=== PATIENT | female | born 1995 ===

== ENCOUNTER 2017-01-04 12:35 | Observation (INO) | payer MEDICAID ==
[2017-01-04 12:44] VITALS: BMI 42.5
[2017-01-04 13:00] VITALS: RESP 18; TEMP 98
--- NOTE | 2017-01-04 13:17 | ED PDOC ---
Arrival/HPI - General Chief Complaint: Abdominal Pain Time Seen by Provider: 01/04/17 12:49 Historian: Patient - History of Present Illness Narrative History of Present Illness (Text): 01/04/17 13:30 A 21 year old female presents to the emergency department complaining of diffuse abdominal pain since yesterday. Pain is intermittent and associated with non bloody watery diarrhea. Patient denies any fever, chills, nausea, vomiting, symptoms, recent antibiotic use or any other complaints at this time. Time/Duration: 24 hours Symptom Onset: Sudden Symptom Course: Intermittent Quality: Other Activities at Onset: Rest Context: Home Past Medical History - Provider Review Nursing Documentation Reviewed: Yes - Past History Past History: No Previous - Hematological/Oncological Hx Blood Transfusions: No - Musculoskeletal/Rheumatological Hx Falls: No - Psychiatric Hx Emotional Abuse: No Hx Physical Abuse: No Hx Substance Use: Yes - Surgical History Hx Cholecystectomy: Yes (January 2016) Hx Tonsillectomy: Yes - Anesthesia Hx Anesthesia: No - Suicidal Assessment Feels Threatened In Home Enviroment: No Family/Social History - Physician Review Nursing Documentation Reviewed: Yes Family/Social History: Unknown Family HX Smoking Status: Former Smoker Hx Alcohol Use: Yes Frequency of alcohol use: Socially Hx Substance Use: Yes Hx Substance Use Treatment: No Allergies/Home Meds Allergies/Adverse Reactions: Allergies pineapple Allergy (Verified 01/04/17 12:59) ANAPHYLAXIS Home Medications: Home Meds Medication Instructions Recorded Confirmed No Known Home Med 01/04/17 01/04/17 Physical Exam - Physical Exam Narrative Physical Exam (Text): - Review of Systems Constitutional: Normal. absent: Fatigue, Weight Change, Fevers Eyes: Normal ENT: Normal Respiratory: Normal absent: SOB, Cough, Sputum Cardiovascular: Normal absent: Chest pain, Palpitations, Syncope Gastrointestinal: Abdominal pain. Diarrhea absent: Nausea, Vomiting Genitourinary: Normal. absent: Dysuria, Frequency, Hematuria Musculoskeletal: Normal. absent: Arthralgias, Back Pain, Neck Pain Skin: Normal Neurological: Normal absent: Focal Weakness Endocrine: Normal Hemo/Lymphatic: Normal Psychiatric: Normal - Physical exam Patient appears age appropriate, speaking full sentences without difficulty - Systems Exam Head: Present: Atraumatic, Normocephalic Pupils: Present: PERRL Extraocular Muscles: Present: EOMI Conjunctiva: Present: Normal Mouth: Present: Moist Mucous Membranes Neck: Present: Normal Range of Motion. No: MIDLINE TENDERNESS, Paraspinal Tenderness Respiratory/Chest: Present: Clear to Auscultation, Good Air Exchange. No: Respiratory Distress, Accessory Muscle Use, Tachypneic Cardiovascular: Present: Regular Rhythm, Tachycardia, Normal S1, S2, Peripheral Pulses Present. No: Murmurs Abdomen: Present: Normal Bowel Sounds, No: Tenderness, Peritoneal Signs, Rebound, Guarding, Distention Back: Present: Normal Inspection. No: Midline Tenderness, Paraspinal Tenderness Upper Extremity: Present: Normal Inspection. No: Cyanosis, Edema Lower Extremity: Present: Normal Inspection. No: Edema Neurological: Present: GCS=15, Speech Normal, cranial nerves II through XII fully intact with no cerebellar abnormality, neuro-sensory fully intact. No focal neurological deficits. Skin: Present: Warm, Dry, Normal Color. No: Rashes Lymphatic: Present: OX3, NI, NC Psychiatric: Present: Alert, Oriented x 3, Normal Insight, Normal Concentration Vital Signs Reviewed: Yes Vital Signs Temp Pulse Resp BP Pulse Ox 01/04/17 16:32 98 H 18 101/58 L 96 01/04/17 15:35 101 H 18 97/53 L 96 01/04/17 14:17 99 H 18 115/75 98 01/04/17 12:44 98 F 110 H 18 117/78 98 Temperature: Afebrile Blood Pressure: Normal Pulse: Tachycardic Respiratory Rate: Normal Appearance: Positive for: Well-Appearing, Non-Toxic, Comfortable Pain Distress: None Mental Status: Positive for: Alert and Oriented X 3 Medical Decision Making ED Course and Treatment: 01/04/17 13:12 Impression: A 21 year old female with abdominal pain and diarrhea. No acute findings on physical examination. Differential Diagnosis include but are not limited to: dehydration vs. electrolyte imbalance Plan: -- Labs -- Toradol and IV Fluids -- Reassess and disposition Prior Visits: Notes and results from previous visits were reviewed. The patient is in the hospital in 01/15 and had a laparoscopic cholecystectomy Progress Notes: 01/04/17 18:00 Patient's CAT scan shows mildly dilated small bowel loops demonstrating mild wall thickening suspicious for enteritis. Mildly enlarged mesenteric lymph nodes suggesting mesenteric adenitis. Interpreted by . On reevaluation, patient reports that she feels much better and would like to be discharged home. Patient's repeat abdominal exam is soft, nontender, non distended with positive bowel sounds in all 4 quadrants and no peritoneal signs. Patient is tolerating PO without any difficulty. Pt states she understands to return to the ER right away for new or worsening symptoms or for inability to f/u with PMD or specialist as instructed. Patient states that she fully agrees with and understands discharge instructions. States that she agrees with the plan and disposition. Verbalized and repeated discharge instructions and plan. I have given the patient opportunity to ask any additional questions. - Lab Interpretations I have reviewed the lab results: Yes - Medication Orders Current Medication Orders: Discontinued Medications Sodium Chloride (Sodium Chloride 0.9%) 1,000 mls @ 1,000 mls/hr IV .Q1H STA Stop: 01/04/17 14:31 Last Admin: 01/04/17 13:45 Dose: 1,000 mls/hr Sodium Chloride (Sodium Chloride 0.9%) 1,000 mls @ 1,000 mls/hr IV .Q1H STA Stop: 01/04/17 16:07 Last Admin: 01/04/17 16:01 Dose: 1,000 mls/hr Iohexol (Omnipaque 350 100 Ml) Confirm Administered Dose 350 mg .ROUTE .STK-MED ONE Stop: 01/04/17 15:34 Ketorolac Tromethamine (Toradol) 15 mg IVP STAT STA Stop: 01/04/17 13:33 Last Admin: 01/04/17 14:20 Dose: 15 mg Morphine Sulfate (Morphine) 4 mg IVP STAT STA Stop: 01/04/17 15:09 Last Admin: 01/04/17 15:41 Dose: 4 mg Pantoprazole Sodium (Protonix Inj) 40 mg IVP STAT STA Stop: 01/04/17 16:58 Last Admin: 01/04/17 17:41 Dose: 40 mg ED OBSERVATION Discharge: Yes Date of observation admission: 01/04/17 Time of observation admission: 13:00 - Observation admission statement Patient is being placed in observation because:: abdominal pain - Goals of Observation Goals of observation are:: labs, CT - Scribe Statement The provider has reviewed the documentation as recorded by the Jaynaibdolly Nelson Provider Scribe Attestation: All medical record entries made by the Jaynaibdolly were at my direction and personally dictated by me. I have reviewed the chart and agree that the record accurately reflects my personal performance of the history, physical exam, medical decision making, and the department course for this patient. I have also personally directed, reviewed, and agree with the discharge instructions and disposition. Disposition/Present on Arrival - Present on Arrival Any Indicators Present on Arrival: No History of DVT/PE: No History of Uncontrolled Diabetes: No Urinary Catheter: No History of Decub. Ulcer: No History Surgical Site Infection Following: None - Disposition Have Diagnosis and Disposition been Completed?: Yes Diagnosis: Diarrhea Disposition: HOME/ ROUTINE Disposition Time: 13:00 Patient Plan: Observation Patient Problems: Current Active Problems Problem Status Onset Diarrhea Acute Condition: STABLE
[2017-01-04] MEDS ORDERED: Sodium Chloride 0.9% 1,000 ML IV STA ×2 (13:32→15:08)
[2017-01-04 13:58] LABS: ADD MANUAL DIFF? NO
[2017-01-04 14:04] LABS: BASO # 0.02 K/mm3 (0.0-2.0); BASO % 0.2 % (0.0-3.0); EOS % 0.2 % (1.5-5.0); GRAN # 6.96 (1.4-6.5); GRAN % 72.9 % (50.0-68.0); HEMATOCRIT 43.8 % (36.0-48.0); LYMPH # 1.8 (1.2-3.4); MEAN CELL VOLUME 79.6 fL (80.0-105.0); MEAN CORPUSCULAR HGB CONC 35.2 g/dl (31.0-37.0); MEAN PLATELET VOLUME 9.3 fl (7.0-11.0); MONO # 0.7 (0.1-0.6); MONO % 7.7 % (1.0-6.0); PLATELET COUNT 202 10^3/uL (120.0-450.0); WHITE BLOOD COUNT 9.5 10^3/ul (4.5-11.0)
[2017-01-04 14:12] LABS: ALB/GLOB RATIO 1.1 (1.1-1.8); ALKALINE PHOSPHATASE 95 U/L (38-133); ALT/SGPT 77 U/L (7-56); AST/SGOT 60 U/L (15-39); BILIRUBIN,TOTAL 0.5 mg/dL (0.2-1.3); BLOOD UREA NITROGEN 11 mg/dL (7-21); CALCIUM 9.3 mg/dL (8.4-10.5); CARBON DIOXIDE 25 mmol/L (21-33); CHLORIDE 102 mmol/L (98-107); GFR AFRICAN-AMERICAN > 60; GLUCOSE,RANDOM 103 mg/dL (70-110); LIPASE 83 U/L (23-300); SODIUM 138 mmol/L (132-148); TOTAL PROTEIN 8.4 g/dL (5.8-8.3)
[2017-01-04] MEDS ORDERED: Morphine 4 mg/ml ISec IVP STA (15:08)
[2017-01-04] MEDS ORDERED: Iohexol 350 MG/100 ML VIAL ONE (15:33)
[2017-01-04 15:35] VITALS: O2SAT 96
--- NOTE | 2017-01-04 17:41 | CT ---
PROCEDURE: CT Abdomen and Pelvis with contrast HISTORY: abd pain, diarrhea COMPARISON: None. TECHNIQUE: Contrast dose: 96 mL of Omnipaque 350. Axial and reformatted coronal and sagittal CT images of the abdomen and pelvis were obtained after IV contrast administration. Radiation dose: Total exam DLP = 1135.04 mGy-cm. This CT exam was performed using one or more of the following dose reduction techniques: Automated exposure control, adjustment of the mA and/or kV according to patient size, and/or use of iterative reconstruction technique. FINDINGS: LOWER THORAX: Unremarkable. LIVER: Unremarkable. No gross lesion or ductal dilatation. GALLBLADDER AND BILE DUCTS: Status post cholecystectomy PANCREAS: Unremarkable. No gross lesion or ductal dilatation. SPLEEN: Unremarkable. ADRENALS: Unremarkable. No mass. KIDNEYS AND URETERS: Unremarkable. No hydronephrosis. No solid mass. VASCULATURE: Unremarkable. No aortic aneurysm. BOWEL: Mildly dilated small bowel loops demonstrate mild wall thickening suspicious for enteritis. No evidence of bowel obstruction. Slightly dilated right colon contains fluid density stool suspicious for diarrhea and mild colitis. APPENDIX: No evidence of appendicitis. PERITONEUM: Unremarkable. No free fluid. No free air. LYMPH NODES: Mildly enlarged mesenteric lymph nodes seen at the mid and upper abdomen suspicious for mesenteric adenitis. BLADDER: Unremarkable. REPRODUCTIVE: Unremarkable. BONES: No acute fracture. OTHER FINDINGS: Trace amount of free fluid in the pelvis likely physiological. IMPRESSION: Mildly dilated small bowel loops demonstrate mild wall thickening suspicious for enteritis. Mildly enlarged mesenteric lymph nodes suggestive of mesenteric adenitis.
[2017-01-04 18:17] VITALS: BP 103/59; PULSE 89
== END 2017-01-04 18:03 | disposition home or self-care (01) ==
LOC: ED 12:35 → EROBSV 13:00
PROVIDERS: ADMIT Emergency Medicine; ATTEND Emergency Medicine
DX: R19.7 Diarrhea, unspecified (principal)
CPT/HCPCS: 74177; 80053; 83690; 85025; 96361; 96374; 96375; 99284; C9113; G0378; J1885; J2270; J7040; Q9967

== ENCOUNTER 2017-01-27 17:15 | Emergency (ER) | payer MEDICAID ==
[2017-01-27 17:35] VITALS: BMI 43.0
[2017-01-27 17:40] VITALS: RESP 18; TEMP 97.8
--- NOTE | 2017-01-27 18:14 | ED PDOC ---
Arrival/HPI - General Chief Complaint: Abnormal Skin Integrity Time Seen by Provider: 01/27/17 18:07 - History of Present Illness Narrative History of Present Illness (Text): 01/27/17 18:23 21yr old female presents today with sunburn to the bilateral shoulders 4 days. Patient states on Wednesday she was at a parade and developed a sunburn to the shoulders. Patient states over the past 2 days she developed some blisters on the tops of the shoulders bilaterally. Complaining of severe pain. No medications have been taken for pain at home. No fevers or chills. No other complaints. Past Medical History - Provider Review Nursing Documentation Reviewed: Yes - Travel History Have you recently traveled outside [place] w/in the past 3 mons?: No - Past History Past History: No Previous - Infectious Disease Hx of Infectious Diseases: None - Tetanus Immunization Tetanus Immunization: Unknown - Hematological/Oncological Hx Blood Transfusions: No - Musculoskeletal/Rheumatological Hx Falls: No - Psychiatric Hx Depression: Yes Hx Emotional Abuse: No Hx Physical Abuse: No Hx Substance Use: No - Surgical History Hx Cholecystectomy: Yes Hx Tonsillectomy: Yes - Anesthesia Hx Anesthesia: Yes Hx Anesthesia Reactions: No Hx Malignant Hyperthermia: No - Suicidal Assessment Feels Threatened In Home Enviroment: No Family/Social History - Physician Review Nursing Documentation Reviewed: Yes Family/Social History: Unknown Family HX Smoking Status: Former Smoker Hx Alcohol Use: No Hx Substance Use: No Hx Substance Use Treatment: No Allergies/Home Meds Allergies/Adverse Reactions: Allergies pineapple Allergy (Verified 01/04/17 12:59) ANAPHYLAXIS Home Medications: Home Meds Medication Instructions Recorded Confirmed Escitalopram Oxalate [Lexapro] 1 tab PO DAILY 01/27/17 01/27/17 Hydroxyzine HCl [Hydroxyzine HCl] 1 cap PO DAILY PRN 01/27/17 01/27/17 Review of Systems - Review of Systems Constitutional: absent: Fatigue, Fevers Respiratory: absent: SOB, Cough Cardiovascular: absent: Chest Pain, Palpitations Gastrointestinal: absent: Abdominal Pain, Nausea, Vomiting Genitourinary Female: absent: Dysuria, Frequency, Hematuria Musculoskeletal: absent: Arthralgias, Back Pain, Neck Pain Skin: Other (burn, shoulders) Psychiatric: absent: Anxiety, Depression Physical Exam Vital Signs Reviewed: Yes Vital Signs Temp Pulse Resp BP Pulse Ox 01/27/17 17:39 97.8 F 96 H 18 122/80 96 Temperature: Afebrile Blood Pressure: Normal Pulse: Regular Respiratory Rate: Normal Appearance: Positive for: Well-Appearing, Non-Toxic, Comfortable Pain Distress: None Mental Status: Positive for: Alert and Oriented X 3 - Systems Exam Head: Present: Atraumatic Mouth: Present: Moist Mucous Membranes Respiratory/Chest: Present: Clear to Auscultation, Good Air Exchange. No: Respiratory Distress, Accessory Muscle Use Cardiovascular: Present: Regular Rate and Rhythm, Normal S1, S2. No: Murmurs Abdomen: No: Tenderness Upper Extremity: Present: Normal ROM, NORMAL PULSES, Erythema (+ bilateral erythema to shoulders; + sporatic small round blisters noted on shoulder bilaterally, left greater than right. ), Neurovascularly Intact, Capillary Refill < 2s. No: Swelling Neurological: Present: GCS=15 Skin: Present: Warm, Dry Psychiatric: Present: Alert, Oriented x 3 Medical Decision Making ED Course and Treatment: 01/27/17 18:54 21-year-old female with sunburn to the bilateral shoulders left greater than right Silvadene applied Motrin given for pain Patient was advised to avoid the sun apply Silvadene twice daily follow-up with her primary care physician and return if symptoms worsen or persist or if new concerning symptoms develop Patient verbalizes understanding of discharge instructions and need for immediate followup. all aspects of this case were discussed the attending of record. Impression: Sunburn, second degree burn shoulders Motrin every 6 hours as needed for pain Apply Silvadene twice daily to the affected areas Avoid the sun Follow-up with her primary care physician within the next 2 days Return if symptoms worsen persist or if new concerning symptoms develop Disposition/Present on Arrival - Present on Arrival Any Indicators Present on Arrival: No History of DVT/PE: No History of Uncontrolled Diabetes: No Urinary Catheter: No History of Decub. Ulcer: No History Surgical Site Infection Following: None - Disposition Have Diagnosis and Disposition been Completed?: Yes Diagnosis: Burn from the sun Disposition: HOME/ ROUTINE Disposition Time: 18:07 Patient Plan: Discharge Patient Problems: Current Active Problems Problem Status Onset Burn from the sun Acute Condition: GOOD Discharge Instructions (ExitCare): Sunburn (ED), Second Degree Burn (ED) Additional Instructions: Motrin every 6 hours as needed for pain Apply Silvadene twice daily to the affected areas Avoid the sun Follow-up with her primary care physician within the next 2 days Return if symptoms worsen persist or if new concerning symptoms develop Prescriptions: Ibuprofen [Motrin] 600 mg PO Q6H PRN #20 tab PRN Reason: pain/fever reduction Silver Sulfadiazine 1% [Silver Sulfadiazine] 1 appl TP BID #1 jar Referrals: Tyrone Muro MD [Staff Provider] - Follow up with primary [facility] [place] [Outside] - Follow up with primary Forms: SCHOOL NOTE, WORK NOTE
[2017-01-27] MEDS ORDERED: Silver Sulfadiazine 1% Cream (20 gm) TOP STA (18:19)
[2017-01-27 19:37] VITALS: BP 120/77; PULSE 91; O2SAT 99
== END 2017-01-27 19:36 | disposition home or self-care (01) ==
LOC: ED 17:15
DX: L55.1 Sunburn of second degree (principal)